=== PATIENT | female | born 1960 | race Caucasian/White ===

== ENCOUNTER 2021-08-18 23:02 | Emergency (ER) | payer BC, OTHER ==
--- NOTE | 2021-08-19 01:05 | EDM.PDOC ---
ED HPI GENERAL MEDICAL PROBLEM - General Chief Complaint: ENT Problem Stated Complaint: PAIN IN BOTH EARS Time Seen by Provider: 08/19/21 00:37 Source of Information: Reports: Patient History Limitations: Reports: No Limitations - History of Present Illness INITIAL COMMENTS - FREE TEXT/NARRATIVE: Patient is a 61-year-old female presents today for right ear pain. Patient has had a stuffy nose for the past few days but today she had a sharp intense pain on her right side of the ear and some fluid leaked out. Patient denies blowing her nose have any Valsalva or going swimming. She noticed some fluid leaking out of it. She denies putting any Q-tips inside there as well. She denies any dizziness or ear ringing right now. Right Ear Pain Score (Numeric/FACES): 9 - Related Data Allergies Allergy/AdvReac Type Severity Reaction Status Date / Time No Known Allergies Allergy Verified 08/18/21 23:57 Home Meds: Home Meds Diclofenac Sodium [Voltaren] 08/18/21 [History] Losartan Potassium 08/18/21 [History] atorvaSTATin [Lipitor] 20 mg PO 08/18/21 [History] Past Medical History Cardiovascular History: Reports: High Cholesterol, Hypertension Respiratory History: Reports: None - Infectious Disease History Infectious Disease History: Reports: C-Difficile Social & Family History - Family History Family Medical History: No Pertinent Family History - Tobacco Use Tobacco Use Status *Q: Never Tobacco User - Caffeine Use Caffeine Use: Reports: Soda - Recreational Drug Use Recreational Drug Use: No ED ROS ENT - Review of Systems Review Of Systems: See Below Constitutional: Reports: No Symptoms HEENT: Reports: Ear Discharge, Ear Pain Respiratory: Reports: No Symptoms Endocrine: Reports: No Symptoms GI/Abdominal: Reports: No Symptoms : Reports: No Symptoms Musculoskeletal: Reports: No Symptoms Skin: Reports: No Symptoms Neurological: Reports: No Symptoms Psychiatric: Reports: No Symptoms Hematologic/Lymphatic: Reports: No Symptoms Immunologic: Reports: No Symptoms ED EXAM, ENT - Physical Exam Exam: See Below Exam Limited By: No Limitations General Appearance: Alert, WD/WN, No Apparent Distress Eye Exam: Bilateral Eye: EOMI Ears: Normal External Exam, Normal TMs (TM is intact). No: Normal Canal (There is blood in ear canal no signs of trauma or touch) Nose: Normal Inspection Mouth/Throat: Normal Inspection Head: Atraumatic, Normocephalic Neck: Normal Inspection Respiratory/Chest: No Respiratory Distress, Lungs Clear, Normal Breath Sounds Cardiovascular: Normal Peripheral Pulses, Regular Rate, Rhythm GI/Abdominal: Normal Bowel Sounds, Soft, Non-Tender Extremities: Normal Inspection, Normal Range of Motion Neurological: Alert, Oriented Course - Vital Signs Last Recorded V/S: Last Vital Signs Temp 97.7 F 08/19/21 00:01 Pulse 96 08/19/21 00:01 Resp 18 08/19/21 00:01 BP 172/81 H 08/19/21 00:01 Pulse Ox 97 08/19/21 00:01 Departure - Departure Time of Disposition: 01:04 Disposition: Home, Self-Care 01 Condition: Good Clinical Impression: Tympanic membrane irritation - Discharge Information *PRESCRIPTION DRUG MONITORING PROGRAM REVIEWED*: Not Applicable *COPY OF PRESCRIPTION DRUG MONITORING REPORT IN PATIENT KIERSTEN: Not Applicable Instructions: Eardrum Rupture, [id number] Referrals: Alan Bond MD [Primary Care Provider] - Additional Instructions: The following information is given to patients seen in the emergency department who are being discharged to home. This information is to outline your options for follow-up care. We provide all patients seen in our emergency department with a follow-up referral. The need for follow-up, as well as the timing and circumstances, are variable depending upon the specifics of your emergency department visit. If you don't have a primary care physician on staff, we will provide you with a referral. We always advise you to contact your personal physician following an emergency department visit to inform them of the circumstance of the visit and for follow-up with them and/or the need for any referrals to a consulting specialist. The emergency department will also refer you to a specialist when appropriate. This referral assures that you have the opportunity for follow-up care with a specialist. All of these measure are taken in an effort to provide you with optimal care, which includes your follow-up. Under all circumstances we always encourage you to contact your private physician who remains a resource for coordinating your care. When calling for follow-up care, please make the office aware that this follow-up is from your recent emergency room visit. If for any reason you are refused follow-up, please contact the [facility] Emergency Department at and asked to speak to the emergency department charge nurse. Please follow up with your primary care physician. If you do not have a primary care physician, see below: Teofilo Tucker MD [facility]Throat/Head & Neck Surgery [facility], [address] [place] [address] P: [phone] F: [phone] You were seen today for pain to your right ear there was some blood coming from the ear tympanic membrane seems to be intact this could be from an ear infection or a cut somewhere along your ear canal. We will place you on antibiotics and have you follow-up with the ear nose and throat doctor. You can also follow-up with your primary care physician above the number you can call to obtain appointment for the nearest ear nose and throat doctor. If you have any other concerning signs or symptoms please return to ED immediately. Sepsis Event Note (ED) - Focused Exam Vital Signs: Vital Signs Temp Pulse Resp BP Pulse Ox 08/19/21 00:01 97.7 F 96 18 172/81 H 97 - Assessment/Plan Plan: Patient is a 61-year-old female presents today for right ear pain. On exam she has some blood coming from ear but the TM looks intact there is no signs of any cuts or tears inside the ear. Patient on exam looks well she has been dealing with a cold. There could be a slight rupture of the tympanic membrane what we would do we will start patient antibiotics and have her follow-up with ENT.
== END 2021-08-19 01:25 | disposition home or self-care (01) ==
LOC: MW.ED 23:02
DX: H73.891 Other specified disorders of tympanic membrane, right ear (principal); E78.00 Pure hypercholesterolemia, unspecified; I10 Essential (primary) hypertension; Z79.899 Other long term (current) drug therapy
CPT/HCPCS: 99282

== ENCOUNTER 2022-10-13 13:36 | Emergency (ER) | payer BC ==
[2022-10-13] MEDS ORDERED: Aspirin 81 MG Tab.Chew PO ONE (13:46)
[2022-10-13 14:32] LABS: CARBON DIOXIDE,CO2 28.1 mmol/L (21.0-32.0); POTASSIUM,K 4.4 mmol/L (3.5-5.1)
[2022-10-13 14:53] LABS: CORONAVIRUS COVID-19 NAA NEGATIVE (NEGATIVE); INFLUENZA A NAA NEGATIVE (NEGATIVE); INFLUENZA B NAA NEGATIVE (NEGATIVE)
== END 2022-10-13 15:32 | disposition home or self-care (01) ==
LOC: MW.ED 13:36
DX: R07.89 Other chest pain (principal); E78.00 Pure hypercholesterolemia, unspecified; I10 Essential (primary) hypertension; Z79.899 Other long term (current) drug therapy; Z20.822 Contact with and (suspected) exposure to COVID-19
CPT/HCPCS: 0240U; 36415; 71045; 80053; 84443; 84484; 85025; 85379; 93005; 99285; A9270